=== PATIENT | male | born 1950 | race Caucasian/White ===

== ENCOUNTER 2020-07-19 13:48 | Emergency (ER) | payer OTHER ==
[~2020-07-19] VITALS: Ht 182.9 cm; Wt 113.0 kg
[2020-07-19 13:58] VITALS: BP 149/93
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
--- NOTE | 2020-07-19 14:25 | RAD ---
3 view study of the left hand Clinical indications: Left hand pain. FINDINGS: No acute fracture or dislocation or lytic process is seen. There is mild primary degenerati ve osteoarthritis of the first carpal metacarpal joint. There is mild primary degenerative osteoarthr itis of the first metacarpal phalangeal joint and the first through fifth interphalangeal joints. IMPRESSION: No acute fracture. Electronically signed by: Abel Anderson MD (07/19/2020 2:22 PM) [id number]
== END 2020-07-19 14:44 | disposition home or self-care (01) ==
LOC: ER 13:48
DX: S69.92XA Unspecified injury of left wrist, hand and finger(s), initial encounter (principal); Y08.89XA Assault by other specified means, initial encounter; Y93.89 Activity, other specified; Y92.89 Other specified places as the place of occurrence of the external cause; Y99.8 Other external cause status
CPT/HCPCS: 73130; 99283